=== PATIENT | female | born 1990 | race Caucasian/White ===

== ENCOUNTER → 2018-11-01 | Outpatient (CLI) | payer OTHER ==
[~2018-11-01] MED LIST: ACET-704 PO; ASPI-630 PO; HYDR200T71 PO; LEVO25TA4 PO; MELO7.5T29 PO; SERT50TA PO
--- NOTE | 2018-11-01 15:25 | EKG ---
[facility] [address] [place] [address] Test Date: 2018-11-01 Test Time: 15:22:10 Pat Name: SACHA VILLARREAL Department: Room: Gender: F Schedule Supervisor: [facility] : 1990 Requested By: MERYL GLEASON Order Number: [id number] Reading MD: Ulisses Eduardo Measurements Intervals [place] Rate: 61 P: 48 VA: 132 QRS: 59 QRSD: 78 T: 31 QT: 384 QTc: 388 Interpretive Statements SINUS RHYTHM MILD NONSPECIFIC ST-T WAVE CHANGES. Electronically Signed On 11-08-2018 10:12:33 CDT by Ulisses Eduardo
[2018-11-01 15:32] LABS: BILIRUBIN,URINE NEGATIVE (NEG); CLARITY,URINE CLEAR; COLOR,URINE YELLOW; NITRITE,URINE NEGATIVE (NEG); PROTEIN,URINE NEGATIVE (NEG-TRACE)
[2018-11-01 15:38] LABS: BASO # 0.1 x10^3/uL (0.0-0.2); BASO % 1 % (0-3); EOS # 0.3 x10^3/uL (0.0-0.7); EOS % 3 % (0-3); HEMATOCRIT 36.9 % (36.0-47.0); HEMOGLOBIN 11.8 g/dL (12.0-15.5); LYMPH # 2.7 x10^3/uL (1.0-4.8); LYMPH % 27 % (24-48); MEAN CORPUSCULAR HEMOGLOBIN 25 pg (25-35); MEAN CORPUSCULAR HGB CONC 32 g/dL (31-37); MEAN CORPUSCULAR VOLUME 77 fL (79-100); MONO # 1.3 x10^3/uL (0.0-1.1); MONO % 13 % (0-9); NEUT # 5.7 x10^3uL (1.8-7.7); NEUT % 57 % (31-73); PLATELET COUNT 298 x10^3/uL (140-400); RED BLOOD COUNT 4.78 x10^6/uL (3.50-5.40); RED CELL DISTRIBUTION WIDTH 14.9 % (11.5-14.5); WHITE BLOOD COUNT 9.9 x10^3/uL (4.0-11.0)
[2018-11-01 15:53] LABS: PROTHROMBIN TIME PATIENT 16.2 SEC (11.7-14.0)
[2018-11-01 15:55] LABS: ALBUMIN 3.8 g/dL (3.4-5.0); ALBUMIN/GLOBULIN RATIO 0.9 (1.0-1.7); CALCIUM 9.1 mg/dL (8.5-10.1); CREATININE 0.8 mg/dL (0.6-1.0); POTASSIUM 3.7 mmol/L (3.5-5.1); TOTAL BILIRUBIN 0.3 mg/dL (0.2-1.0)
[2018-11-01 16:21] LABS: BACTERIA,URINE MODERATE /HPF (0-FEW); RBC,URINE 0 /HPF (0-2); SQUAMOUS EPITHELIAL CELL,UR MOD /LPF; WBC,URINE 20-40 /HPF (0-4)
--- NOTE | 2018-11-01 16:32 | RAD ---
PA and lateral views of the chest dated 11/01/2018. No comparison available. CLINICAL INDICATION: Preop for hysterectomy. FINDINGS: PA and lateral views obtained. Heart and mediastinal contours are stable. Lungs are clear without focal consolidation. Vascular interstitium within normal limits. No pleural effusion or pneumothorax. IMPRESSION: No acute radiographic abnormality Electronically signed by: Carlos Schwarz MD (11/01/2018 4:29 PM) [id number]
--- NOTE | 2018-11-02 08:51 | NUR ---
FAXED PRETESTING RESULTS TO DR GLEASON'S OFFICE.
== END | disposition home or self-care (01) ==
LOC: SURGPAT 14:25
PROVIDERS: ATTEND Obstetrics & Gynecology
DX: Z01.818 Encounter for other preprocedural examination (principal); R94.31 Abnormal electrocardiogram [ECG] [EKG]
CPT/HCPCS: 36415; 71046; 80053; 81001; 84436; 84443; 85025; 85610; 85730; 87086; 93005

== ENCOUNTER 2018-11-10 06:16 | Observation (INO) | payer OTHER ==
[~2018-11-10] VITALS: Ht 160 cm; Wt 85.3 kg
[2018-11-10] MEDS ORDERED: ESTROGENS, CONJ VAGINAL CREAM 30GM TUBE. ONE (06:33)
[2018-11-10] MEDS ORDERED: BUPIVACAINE-EPI 0.25%-1:200000 MPF 30 ML VIAL. ONE (06:33)
[2018-11-10] MEDS ORDERED: METHYLENE BLUE 1% 10 ML VIAL. ONE (06:39)
[2018-11-10 06:49] LABS: U PREG PATIENT NEGATIVE (NEG)
[2018-11-10] MEDS ORDERED: HYDROmorphone 2 MG/ML VIAL IV PRN ×2 (07:00)
[2018-11-10] MEDS ORDERED: MORPHINE SULFATE 2 MG/ML VIAL. IV PRN ×2 (07:00)
[2018-11-10] MEDS ORDERED: PROCHLORPERAZINE 10 MG/2 ML VIAL. IV PRN ×2 (07:00)
[2018-11-10] MEDS ORDERED: fentaNYL PF VIAL 100 MCG/2 ML VIAL IV PRN ×4 (07:00→09:00)
[2018-11-10] MEDS ORDERED: ONDANSETRON PF 4 MG/2 ML VIAL. IV PRN ×3 (07:00→09:45)
[2018-11-10] MEDS ORDERED: IV RINGERS,LACTATED 1000ML 1,000 ML IV SCH ×2 (07:00)
[2018-11-10] MEDS ORDERED: LIDOCAINE 1% PF 2 ML VIAL. ID PRN ×2 (07:00)
[2018-11-10] MEDS ORDERED: PROPOFOL 20 ML IV ONE (07:05)
[2018-11-10] MEDS ORDERED: LIDOCAINE 2% PF 5 ML VIAL. ONE (07:05)
[2018-11-10] MEDS ORDERED: ROCURONIUM 50 MG/5 ML VIAL. ONE (07:06)
[2018-11-10] MEDS ORDERED: SUCCINYLCHOLINE 200 MG/10 ML VIAL. ONE (07:06)
[2018-11-10] MEDS ORDERED: fentaNYL PF VIAL 100 MCG/2 ML VIAL ONE ×4 (07:06→10:21)
[2018-11-10] MEDS ORDERED: HEPARIN for SUB-Q USE 5,000 UNIT/ML VIAL. SQ ONE (07:30)
[2018-11-10] MEDS ORDERED: DEXAMETHASONE SOD PHOS 20 MG/5 ML VIAL. ONE (07:48)
[2018-11-10] MEDS ORDERED: DESFLURANE 61 TO 120 MINUTES IH ONE (07:48)
[2018-11-10] MEDS ORDERED: ONDANSETRON PF 4 MG/2 ML VIAL. ONE (07:48)
[2018-11-10] MEDS ORDERED: FAMOTIDINE 20 MG/2 ML VIAL ONE (07:48)
[2018-11-10] MEDS ORDERED: PHENYLEPHRINE in 0.9% NACL PF 1 MG/10 ML SYRINGE. IV ONE (07:52)
[2018-11-10] MEDS ORDERED: ePHEDrine PF IN SALINE 50 MG/10 ML SYRINGE. IV ONE (07:53)
[2018-11-10] MEDS ORDERED: GLYCOPYRROLATE 1 MG/5 ML VIAL. ONE (08:52)
[2018-11-10] MEDS ORDERED: NEOSTIGMINE METHYLSULFATE 5 MG/5 ML SYRINGE. ONE (08:52)
[2018-11-10] MEDS ORDERED: MAGNESIUM HYDROXIDE 2,400 MG/30 ML ORAL.SUSP. PO PRN (09:45)
[2018-11-10] MEDS ORDERED: NALOXONE 0.4 MG/ML VIAL. IV PRN (09:45)
[2018-11-10] MEDS ORDERED: MORPHINE SULFATE 4 MG/ML VIAL. IV PRN (09:45)
[2018-11-10] MEDS ORDERED: 0.9 % SODIUM CHLORIDE 10 ML DISP.SYRIN. IV PRN (09:45)
[2018-11-10] MEDS ORDERED: diphenhydrAMINE 50 MG/ML VIAL IV PRN (09:45)
[2018-11-10] MEDS ORDERED: LACTULOSE 20 GM/30 ML SOLUTION. PO PRN (09:45)
[2018-11-10] MEDS ORDERED: MAG HYDROX/ALUMINUM HYD/SIMETH 30 ML ORAL.SUSP PO PRN (09:45)
[2018-11-10] MEDS ORDERED: SIMETHICONE 80 MG TAB.CHEW PO PRN (09:45)
[2018-11-10] MEDS ORDERED: ZOLPIDEM 5 MG TABLET. PO PRN (09:45)
[2018-11-10] MEDS ORDERED: CALCIUM CARBONATE 500 MG TAB.CHEW PO PRN (09:45)
[2018-11-10] MEDS ORDERED: diphenhydrAMINE HCL 25 MG CAPSULE PO PRN (09:45)
--- NOTE | 2018-11-10 09:56 | PDOC ---
BRIEF OPERATIVE NOTE Date: Nov 10, 2018 Pre-Op Diagnosis pelvic pain with endometriosis Post-Op Diagnosis same plus adhesive disease Procedure Performed LAVH/BSO with adhesiolysis Surgeon Dr. Rosita Jaramillo Auto Appraiser Corine Mcconnell Anesthesiologist Dr. Olvera Anesthesia Type: General Blood Loss 250cc IV Fluid 1200cc Urine Output 125cc clear via romo Specimens Obtained cervix, uterus, bilateral tubes and ovaries with right para ovarian cyst Findings RV uterus, scarring and adhesions in post cul de sac; left ovary adhesed to left side wall, right enlarged paraovarian cyst Complications none Operative Note [id number] ROSITA JARAMILLO MD Nov 10, 2018 09:56
[2018-11-10] MEDS ORDERED: PROCHLORPERAZINE 10 MG/2 ML VIAL. ONE (09:59)
[2018-11-10] MEDS: fentaNYL PF VIAL 100 MCG/2 ML VIAL IV PRN ×2 (10:00→10:13)
--- NOTE | 2018-11-10 10:37 | OP ---
DATE OF SURGERY: 11/10/2018 PREOPERATIVE DIAGNOSES: Pelvic pain with known endometriosis and 3 prior laparoscopy with excision and continued pain, desiring definitive therapy. POSTOPERATIVE DIAGNOSES: Pelvic pain with known endometriosis and 3 prior laparoscopy with excision and continued pain, desiring definitive therapy. Adhesive disease. PROCEDURE: Laparoscopic-assisted vaginal hysterectomy, bilateral salpingo-oophorectomy with adhesiolysis. SURGEON: Meryl Jaramillo MD COSTUMING SUPERVISOR: Corine Marion. ANESTHESIOLOGIST: Dr. Olvera. ANESTHESIA: General. URINE OUTPUT: 125 mL. Clear via Hu catheter. ESTIMATED BLOOD LOSS: 250 mL. IV FLUIDS: 1200 mL of crystalloid. SPECIMEN: Cervix, uterus, bilateral tubes and ovaries with a right paraovarian cyst. FINDINGS: A retroverted uterus, scarring and adhesions in the posterior cul-de-sac. Left ovary was adhesed to the left pelvic side wall, enlarged right paraovarian cyst. COMPLICATIONS: None. DESCRIPTION OF PROCEDURE: This patient was taken to the operating room where general anesthesia was placed. The patient was placed in a dorsal lithotomy position in [facility]. The patient's abdomen and vagina were prepped and draped in the normal sterile fashion, and a Hu catheter had been inserted under sterile technique. Prior to starting, she had received her 5000 subcutaneous heparin and her Ancef IV. Upon my entry to the room, a timeout was performed. Once everyone agreed, a bivalve speculum was placed in the patient's vagina. A single tooth tenaculum was used to grasp the anterior lip of the cervix. A 10 mL of 0.25% Marcaine with epinephrine was used to circumferentially inject around the cervix for both hemodissection and hemostatic purposes later. Once this was in, the Valtchev uterine manipulator was placed through the endocervical os, locked on the single tooth tenaculum and the bivalve speculum was then removed. Top gloves were discarded and changed. Attention was then turned to the abdomen where a small infraumbilical skin incision was made over the previous existing scar. A curved Saida was used to dissect through the subcuticular layer to the fascia. The 5 mm Visiport was used to directly enter the abdominal cavity. Opening patient pressure was 3-4 mmHg. Carbon dioxide gas was used to then appropriately insufflate the abdominal cavity to maintain a pressure of 15 mmHg. Right and left lower quadrant ports were placed under direct visualization. The right one was placed over an existing scar and placed in. The left one was placed transilluminating the abdominal wall, finding an area clear of any vasculature and placing the trocar in under direct visualization. Both of the trocars were inflated with a 4-5 mL of air. The camera was then moved and looked at the umbilical port. It was also clear. So it was insufflated with the air as well and the cuff. At this point, the patient was placed again in a steep Trendelenburg position, and the left tube was elevated. The ovary was stuck, so I used the [place] to elevate the ovary and the LigaSure and was used as a blunt dissector to go in and find an area posterior where there was an opening in the wall and can come around and peel it off the wall. Once this was done and it got up, the ureter was found coursing low in the pelvis, so crossing high under the ovary on the IP ligament, cauterizing and cutting, going under the tube and ovary, crossing the left round ligament as well. This was done exactly the same on the right. The right was not adhesed. The ureter was found midway but definitely below the ovary. There was a large right paraovarian cyst that was going to come out as well, but the ureter was found staying high on the ovary, crossing again on the IP ligament, cauterizing and cutting with the LigaSure and then going under the tube and ovary, crossing the right round ligament as well. The bladder flap was then started from the right sidewall. The uterus was pushed cephalad toward the head and creating it sharply with the monopolar hook while elevating the bladder flap and going across it, pulling it down. The uterine vessels were obtained on the right side and going down hugging the cervix to the right above the uterosacral on this right side. This was done exactly the same on the left. Pushing the uterus then, getting the uterines and then staying inside that pedicle, crossing contralaterally, hugging the cervix and staying inside that going down to the level of the uterosacral. Once this was done, the uterus was blanched and free. I did have to go down posteriorly and elevate the uterus and peel off just mild adhesive disease from the peritoneum to the cervix and posterior uterus where the descending colon that was from her previous, it looked like they had resected some peritoneum and the posterior cul-de-sac on her last laparoscopy that I had requested the note on, scarring in this area, but that was filmy and able to be pulled down as well, just making sure that posterior cul-de-sac area was clear when we entered from below, so at this point, all instruments were removed from the abdomen and attention was turned vaginally. The single tooth and Valtchev were removed and a weighted speculum was placed in the patient's vagina. Thyroid Dann clamps were placed on the anterior and posterior lips of the cervix respectively. A scalpel was used to make a circumferential incision in the cervix. An open Ray-Ellie 4 x 4 was used to gently push up the anterior bladder peritoneum. The anterior cul-de-sac was digitally and bluntly entered easily. A curved Nery was placed here. The cervix was elevated and the posterior cul-de-sac was sharply entered with the Tejada scissors. A #0 Vicryl stitch was used to secure the posterior peritoneum to the vaginal cuff. It was tagged with a curved Saida clamp and the needle was cut and passed off. The short weighted speculum was removed and replaced with the long weighted Cris speculum in the posterior cul-de-sac. Curved Ramiro clamps x 2 were placed on the patient's left uterosacral ligament where they were doubly clamped with curved Heaneys, cut with Tejada scissors and suture ligated x 2 with 0 Vicryl. Second one was taken through the vaginal cuff securing uterosacral ligament to the vaginal cuff and tagging it with a straight Saida clamp and cutting and passing the needle off. This was done exactly the same on the right side, double clamping the uterosacrals with curved Armiro's, cutting with Tejada scissors, suture ligating x 2 with 0 Vicryl and taking the second one through the vaginal cuff, securing uterosacral ligament to the vaginal cuff and tagging it with a straight Saida clamp and cutting and passing the needle off. There were really no remaining pedicle and cervix, uterus, bilateral tubes and ovaries with right paraovarian cyst, were delivered in total and passed off for permanent pathology. A sponge stick was used to examine the pedicles. The 4 x 4 was taken out of the anterior cul-de-sac. The long Allis was used to grasp the anterior bladder peritoneum. The long weighted Cris speculum was removed and replaced with the short weighted vaginal speculum and everything appeared to be hemostatic. So at this point 2-0 Vicryl was taken through the anterior bladder peritoneum, left uterosacral ligament, posterior peritoneum and right uterosacral ligament, thus closing the peritoneum in a pursestring like fashion. Once this was done, the right and left uterosacral tags were clipped and the cuff was closed in an anterior to posterior running locked fashion and tied to that posterior cuff tag. An imbricating stitch in the middle was done just for hemostasis and security. Once this was done, the cuff looked excellent with no bleeding and was examined with a sponge stick. So, everything was removed from the vagina. All sponge, lap and needle counts were correct x 2 on the lower part. At this point, all gloves were discarded and changed and attention was turned back above for a second look. The patient was placed back in Trendelenburg. Gas was reinsufflated. Copious irrigation showed some mild oozing on the left kind of vaginal cuff area. I used the LigaSure on this with excellent results. She just had some friable raw tissue from the adhesions. Tisseel was placed over this and then Katie was placed over that with excellent results. I took the gas down. I watched it go down, everything was good. The air was taken out of the trocar cuff. The right and left lower quadrant ports were removed. The cuff remained hemostatic. Gas was released from the umbilical port, that cuff was deflated and then three of these were closed with 4-0 nylon and injected with local at the end. The patient is being awoke from anesthesia right now. MERYL JARAMILLO MD DR: ZOE/arlene JOB#: [id number] / [id number]
[2018-11-10 11:05] VITALS: BP 102/57
[2018-11-10 11:25] VITALS: BP 113/62
[2018-11-10 12:05] VITALS: BP 104/65
[2018-11-10 13:51] VITALS: BP 106/68
[2018-11-10] MEDS ORDERED: AMMONIA AROMATIC 15% INHALANT AMPUL. ONE ×2 (14:42→15:00)
[2018-11-10] MEDS: HYDROcodone/APAP 5/325MG 1 TAB TABLET PO PRN ×2 (15:48→19:38)
[2018-11-10 16:30] VITALS: BP 109/68
[2018-11-10] MEDS: HEPARIN for SUB-Q USE 5,000 UNIT/ML VIAL. SQ SCH (21:16)
[2018-11-10 23:00] VITALS: BP 110/61
[2018-11-11] MEDS ORDERED: LEVOTHYROXINE 25 MCG TABLET. PO SCH (06:00)
[2018-11-11 06:50] VITALS: BP 104/65
[2018-11-11 07:35] LABS: CALCIUM 8.7 mg/dL (8.5-10.1); CREATININE 0.8 mg/dL (0.6-1.0); POTASSIUM 3.9 mmol/L (3.5-5.1)
[2018-11-11] MEDS: HEPARIN for SUB-Q USE 5,000 UNIT/ML VIAL. SQ SCH (08:48)
[2018-11-11] MEDS: oxyCODONE/APAP 5/325 1 TAB TABLET PO PRN ×2 (08:58→14:40)
[2018-11-11] MEDS ORDERED: SERTRALINE 50 MG TABLET. PO SCH (09:00)
[2018-11-11 12:43] VITALS: BP 106/61
--- NOTE | 2018-11-11 12:56 | PDOC ---
SURGICAL PROGRESS NOTE Subjective Doing well without complaints. tolerating a regular diet, voiding without catheter, scant VB Vital Signs Vital Signs Date Time Temp Pulse Resp B/P (MAP) Pulse Ox O2 Delivery O2 Flow Rate FiO2 11/11/18 06:50 98.1 79 104/65 (78) 99 Room Air 98.1 11/10/18 16:30 18 11/10/18 10:13 8.0 I&O Intake and Output 11/11/18 07:00 Intake Total 1950 ml Output Total 975 ml Balance 975 ml Intake Oral 400 ml IV Total 1550 ml Output Urine Total 725 ml Estimated Blood Loss 250 ml # Voids 1 PATIENT HAS A COOK: No General: Alert, Oriented X3, Cooperative, No acute distress HEENT: Atraumatic Heart: Regular rate Abdomen: Soft, No tenderness, Other (all port sites c/d/i) Extremities: No clubbing, No cyanosis, No edema, No tenderness/swelling Skin: No rashes, No breakdown Neuro: Normal speech Psych/Mental Status: Mental status NL, Mood NL Labs Laboratory Tests Test 11/10/18 06:20 11/11/18 06:44 Urine Test Negative (NEG) Hematocrit 31.5 % (36.0-47.0) Sodium Level 142 mmol/L (136-145) Potassium Level 3.9 mmol/L (3.5-5.1) Chloride Level 107 mmol/L (98-107) Carbon Dioxide Level 26 mmol/L (21-32) Anion Gap 9 (6-14) Blood Urea Nitrogen 7 mg/dL (7-20) Creatinine 0.8 mg/dL (0.6-1.0) Estimated GFR (Cockcroft-Gault) 86.0 Glucose Level 89 mg/dL (70-99) Calcium Level 8.7 mg/dL (8.5-10.1) Laboratory Tests Test 11/11/18 06:44 Hematocrit 31.5 % (36.0-47.0) Sodium Level 142 mmol/L (136-145) Potassium Level 3.9 mmol/L (3.5-5.1) Chloride Level 107 mmol/L (98-107) Carbon Dioxide Level 26 mmol/L (21-32) Anion Gap 9 (6-14) Blood Urea Nitrogen 7 mg/dL (7-20) Creatinine 0.8 mg/dL (0.6-1.0) Estimated GFR (Cockcroft-Gault) 86.0 Glucose Level 89 mg/dL (70-99) Calcium Level 8.7 mg/dL (8.5-10.1) I have reviewed the following labs, vitals, nursing Heme/Onc: Anemia NOS Assessment/Plan POD #1 s/p LAVH/BSO with adhesiolysis Routine care d/c to home NPV x 6 weeks light/limited activity x 2 weeks already has pain pills filled at home restart heparin daily NO driving while on narcotic pain meds keep scheduled one week postop visit in office call or return sooner for any other questions or concerns not limited to but including pain unrelieved with pain meds, increased or unexplained vaginal bleeding or any other questions or concerns MERYL GLEASON MD Nov 11, 2018 12:56
--- NOTE | 2018-11-11 12:58 | PDOC3 ---
Discharge Summary Visit Information Date of Admission: Nov 10, 2018 Date of Discharge: Nov 11, 2018 Admitting Diagnosis Comment: severe endometriosis and pelvic pain Brief Hospital Course Allergies Allergies Coded Allergies Type Severity Reaction Last Updated Verified Sulfa (Sulfonamide Antibiotics) Allergy Unknown Nausea and Vomiting 11/10/18 Yes Vital Signs Vital Signs Date Time Temp Pulse Resp B/P (MAP) Pulse Ox O2 Delivery O2 Flow Rate FiO2 11/11/18 06:50 98.1 79 104/65 (78) 99 Room Air 98.1 11/10/18 16:30 18 11/10/18 10:13 8.0 Lab Results Laboratory Tests Test 11/10/18 06:20 11/11/18 06:44 Urine Test Negative (NEG) Hematocrit 31.5 % (36.0-47.0) Sodium Level 142 mmol/L (136-145) Potassium Level 3.9 mmol/L (3.5-5.1) Chloride Level 107 mmol/L (98-107) Carbon Dioxide Level 26 mmol/L (21-32) Anion Gap 9 (6-14) Blood Urea Nitrogen 7 mg/dL (7-20) Creatinine 0.8 mg/dL (0.6-1.0) Estimated GFR (Cockcroft-Gault) 86.0 Glucose Level 89 mg/dL (70-99) Calcium Level 8.7 mg/dL (8.5-10.1) Laboratory Tests Test 11/11/18 06:44 Hematocrit 31.5 % (36.0-47.0) Sodium Level 142 mmol/L (136-145) Potassium Level 3.9 mmol/L (3.5-5.1) Chloride Level 107 mmol/L (98-107) Carbon Dioxide Level 26 mmol/L (21-32) Anion Gap 9 (6-14) Blood Urea Nitrogen 7 mg/dL (7-20) Creatinine 0.8 mg/dL (0.6-1.0) Estimated GFR (Cockcroft-Gault) 86.0 Glucose Level 89 mg/dL (70-99) Calcium Level 8.7 mg/dL (8.5-10.1) Brief Hospital Course Ms. Mauricio is a 28 old female who presented with recurrent pelvic pain and 3 prior laparoscopies for endometriosis desiring definitve therapy. She underwent an LAVH/BSO with adhesiolysis yesterday without complications. She has had an unremarkable postoperative course and is voiding without catheter, tolerating a regular diet and on PO pain meds. She will be discharged to home later today She is AF VSS Discharge Information Condition at Discharge: Stable Follow Up: Weeks Disposition/Orders: D/C to Home Scheduled Aspirin (Aspirin) 81 Mg Tab.chew, 1 TAB PO DAILY for BLOOD THINNER, #30 Ref 3 ( Reported) Entered as Reported by: MIRIAM IZAGUIRRE on 11/01/18 1504 Last Taken: Unknown Dose on 11/01/18 Last Action: HELD on 11/10/18722 by MERYL GLEASON Hydroxychloroquine Sulfate (Plaquenil) 200 Mg Tablet, 200 MG PO DAILY for LUPUS, (Reported) Entered as Reported by: MIRIAM IZAGUIRRE on 11/01/18 1501 Last Taken: Unknown Dose on 11/09/18 Last Action: HELD on 11/10/18722 by MERYL GLEASON Levothyroxine Sodium (Levothyroxine Sodium) 25 Mcg Tablet, 1 TAB PO DAILY for THROID, #30 Ref 5 (Reported) Entered as Reported by: MIRIAM IZAGUIRRE on 11/01/18 1503 Last Taken: Unknown Dose on 11/09/18 Last Action: Converted on 11/10/18722 by MERYL GLEASON Meloxicam (Meloxicam) 7.5 Mg Tablet, 1 TAB PO DAILY for PAIN, #30 Ref 2 ( Reported) Entered as Reported by: MIRIAM IZAGUIRRE on 11/01/18 1502 Last Taken: Unknown Dose on 11/09/18 Last Action: HELD on 11/10/18722 by MERYL GLEASON Sertraline Hcl (Zoloft) 50 Mg Tablet, 1 TAB PO DAILY for DEPRESSION, #30 Ref 2 ( Reported) Entered as Reported by: MIRIAM IZAGUIRRE on 11/01/18 1458 Last Taken: Unknown Dose on 11/09/18 Last Action: Continued on 11/10/18722 by MERYL GLEASON Scheduled PRN Acetaminophen With Codeine (Tylenol With Codeine #3 Tablet) 1 Each Tablet, 1 TAB PO PRN Q6HRS PRN for PAIN, (Reported) Entered as Reported by: MIRIAM IZAGUIRRE on 11/01/18 1457 Last Taken: Unknown Dose on 11/09/18 Last Action: HELD on 11/10/18722 by MERYL GLEASON Patient Instructions Patient Instructions POD #1 s/p LAVH/BSO with adhesiolysis Routine care d/c to home NPV x 6 weeks light/limited activity x 2 weeks already has pain pills filled at home restart heparin daily NO driving while on narcotic pain meds keep scheduled one week postop visit in office call or return sooner for any other questions or concerns not limited to but including pain unrelieved with pain meds, increased or unexplained vaginal bleeding or any other questions or concerns MERYL GLEASON MD Nov 11, 2018 12:58
--- NOTE | 2018-11-11 14:54 | NUR ---
home instructions gone over with pt and signed no questions on home care has appt set up with
--- NOTE | 2018-11-11 15:07 | PATHOLOGY ---
[facility] Accession Number: [id number] . 01 Material submitted: . UTERUS, CERVIX, BILATERAL TUBES AND OVARIES . 01 Clinical history: . Endometriosis, pelvic pain . 02 Diagnosis: Uterus, bilateral ovaries and fallopian tubes, hysterectomy and bilateral salpingectomy: - Cervix with mild chronic inflammation and nabothian cysts. - Proliferative phase endometrium. - Myometrium with focal adenomyosis. - Serosal surface with no pathologic diagnosis. - Right and left ovaries with hemorrhagic cysts (please see comment). - Right and left fallopian tubes with no pathologic diagnosis. (KATELIN:zan; 11/11/2018) [facility]/11/11/2018 . 02 Comment: No definite endometrial glands or stroma are present in association with the hemorrhagic cysts in the ovary, however, the findings could be consistent with endometriosis. (KATELIN:zan; 11/11/2018) . 02 Electronically signed: . Miles Sow MD, Pathologist NPI- [id number] . 01 Gross description: . The specimen is received in formalin, labeled "[place], Valentine, uterus, cervix, bilateral tubes and ovaries" and consists of a 82 g uterus with attached cervix measuring 8.7 x 5.2 x 3.8 cm. There are attached bilateral adnexa. The right consists of a fimbriated fallopian tube (7.4 cm in length and up to 0.5 cm in diameter) which is attached to a 15 g cystic mass/ovary measuring 5.4 cm in length and ranging from 0.3-4.0 cm in diameter. The left complex consists of a fimbriated fallopian tube (5.8 cm in length and up to 0.6 cm in diameter) attached to a hemorrhagic and cystic 7 g ovary (3.9 x 2.2 x 1.6 cm). The uterine serosa is pink-sherman anterior surface with marked hemorrhage and adhesions on the posterior aspect. The slitlike and gaping 1.8 cm cervical os is surrounded by granular pink-brown ectocervical mucosa. The specimen is bivalved to reveal a grooved and polypoid endocervical canal measuring 2.6 cm in length. The endometrial cavity is triangular measuring 4.2 cm in length and 2.6 cm in width which is lined by a red-pink endometrium ranging from 0.1-0.2 cm. The myometrium is pink-sherman and mildly trabeculated measuring up to 2.2 cm. No masses are identified. . Both the right and left fimbriated fallopian tubes are purple-boggs and smooth with sectioning revealing a well-defined central lumen and no gross lesions. Sectioning the right ovary reveals multiple uniloculated cystic structures containing viscous fluid. The large ovarian mass consists of a "chocolate cyst." Sectioning the left ovary reveals multiple uniloculated subcortical cysts containing translucent fluid as well as a "chocolate cyst". Sas Architect sections are submitted as follows: . A1: Anterior cervix A2: Posterior cervix A3: Endocervical canal A4: Anterior endomyometrium A5: Posterior endomyometrium A6: Serosal hemorrhage A7: Right fallopian tube with attached cystic ovary A8: Right ovarian cystic mass A9: Left fallopian tube A10: Left ovary (SDY; 11/10/2018) SYU/SYU . 02 Pathologist provided ICD-10: N72, N88.8, N80.0, N83.201, N83.202 . 02 CPT . 155260 Specimen Comment: A courtesy copy of this report has been sent to Specimen Comment: [phone], . Specimen Comment: Report sent to / DR TAYLOR Specimen Comment: A duplicate report has been generated due to demographic updates. Performed at: 01 [facility] [address], [place] [id number] MD Colt Falcon MD Phone: [phone] Performed at: [facility] [address] [place], [place] [id number] MD Eliseo Vale MD Phone: [phone]
== END 2018-11-11 15:37 | disposition home or self-care (01) ==
LOC: SURG 06:16 → EDUNIT# 07:30 → 3 NORTH 10:06
PROVIDERS: ADMIT Obstetrics & Gynecology; ATTEND Obstetrics & Gynecology
DX: N80.9 Endometriosis, unspecified (principal); N83.209 Unspecified ovarian cyst, unspecified side; E46 Unspecified protein-calorie malnutrition; M32.14 Glomerular disease in systemic lupus erythematosus
CPT/HCPCS: 36415; 58552; 80048; 81025; 85014; 86850; 86900; 86901; 88307; 96372; 96374; A7015; G0378; G0379; J0171; J0330; J0780; J1100; J1644; J2001; J2370; J2405; J2704; J2710; J3010; J3490; J7030; J7120; Q9968

== ENCOUNTER → 2019-03-07 | Day surgery (SDC) | payer OTHER ==
[~2019-03-07] VITALS: Ht 160 cm; Wt 83.0 kg
[~2019-03-07] MED LIST changes: +ACETAMINOPHEN/CODEINE 300/30MG TABLET. PO ONE; +BUPIVAC MPF-EPI 0.5%-1:200000 30 ML VIAL. ONE; +BUPIVACAINE MPF 0.5% 30 ML VIAL. ONE; +BUPIVACAINE-EPI 0.25%-1:200000 MPF 30 ML VIAL. ONE; +DESFLURANE 31 TO 60 MINUTES IH ONE; +DEXAMETHASONE SOD PHOS 4 MG/ML VIAL ONE; +FAMOTIDINE 20 MG/2 ML VIAL ONE; +GLUCAGON,HUMAN RECOMBINANT 1 MG/ML VIAL. ONE; +GLYCOPYRROLATE 1 MG/5 ML VIAL. ONE; +HEPARIN for SUB-Q USE 5,000 UNIT/ML VIAL. SQ ONE; +IOHEXOL 300 MG/ML 50 ML VIAL. ONE; +IV RINGERS,LACTATED 1000ML 1,000 ML IV SCH; +LIDOCAINE 1% PF 2 ML VIAL. ID PRN; +LIDOCAINE 2% PF 5 ML VIAL. ONE; +NEOSTIGMINE METHYLSULFATE 5 MG/5 ML SYRINGE. ONE; +ONDANSETRON PF 4 MG/2 ML VIAL. IV PRN; +ONDANSETRON PF 4 MG/2 ML VIAL. ONE; +PROCHLORPERAZINE 10 MG/2 ML VIAL. IV PRN; +PROPOFOL 20 ML IV ONE; +ROCURONIUM 50 MG/5 ML VIAL. ONE; +SUCCINYLCHOLINE 200 MG/10 ML VIAL. ONE; +SURGICEL HEMOSTAT 4X8 EACH. ONE; +ceFAZolin 2GM PREMIX 2 GM/50 ML BAG IV ONE; +fentaNYL PF VIAL 100 MCG/2 ML VIAL IV PRN; +fentaNYL PF VIAL 100 MCG/2 ML VIAL ONE
--- NOTE | 2019-03-07 08:44 | RAD ---
CHOLANGIOGRAM INTRAOPERATIVE Clinical Indication: Cholecystectomy. Comparison: None. Findings: Intraoperative fluoroscopic guidance is provided by the technologist. Total fluoroscopy time 0.8 minutes. 2 fluoroscopic spot images. Cholecystectomy clips. Injection of cystic duct remnant opacifies the biliary tree. The extra hepatic duct is dilated, there is minimal spillage into the duodenum. The common bile duct is normal caliber. No intraluminal filling defect is identified. There is a probable enteric tube in the stomach. IMPRESSION: No evidence of choledocholithiasis. Electronically signed by: Elia Neal MD (03/07/2019 8:42 AM) [id number]
--- NOTE | 2019-03-07 09:15 | DISCH ---
DISCHARGE INSTRUCTIONS Condition on Discharge Condition on Discharge: Stable Activity After Discharge Activity Instructions for Disc: Activity as tolerated, Avoid exertion Lifting Instructions after Dis: No heavy lifting Driving Instructions after Dis: Do not drive (3-4 days) Diet after Discharge Diet after Discharge: Regular Wound Incision Care Wound/Incision Care: Ice to area for comfort Other wound/incision instructi: december showthursday Follow-Up Follow up with: Hermann next week Treatment/Equipment after DC Adaptive Equipment Issued: None JANETTE SPENCER MD Mar 07, 2019 09:14
--- NOTE | 2019-03-07 09:36 | PDOC ---
BRIEF OPERATIVE NOTE Date: Mar 07, 2019 Pre-Op Diagnosis symptomatic cholelithiasis Post-Op Diagnosis same Procedure Performed l/s cholecystectomy with cholangiograms Surgeon Hermann KRUSE Anesthesia Type: General Blood Loss 25cc IV Fluid 1000cc Specimens Obtained GB Findings small, stone filled GB, normal grams Complications none Operative Note Wk # [id number] JANETTE SPENCER MD Mar 07, 2019 09:36
[2019-03-07] MEDS: fentaNYL PF VIAL 100 MCG/2 ML VIAL IV PRN ×4 (09:38→11:03)
--- NOTE | 2019-03-07 10:22 | OP ---
DATE OF SURGERY: 03/07/2019 PREOPERATIVE DIAGNOSIS: Symptomatic cholelithiasis. POSTOPERATIVE DIAGNOSIS: Symptomatic cholelithiasis. PROCEDURE: Laparoscopic cholecystectomy with cholangiogram. SURGEON: Titus Spencer MD BIOLOGY LECTURER: AIXA Peña ANESTHESIA: General endotracheal. ESTIMATED BLOOD LOSS: 25 mL. INTRAVENOUS FLUIDS: 1 liter. INDICATIONS: The patient is a 28-year-old with right upper quadrant pain and gallstones. She has protein S deficiency and as such received subcutaneous heparin preoperatively. OPERATIVE FINDINGS: The liver was smooth and sharp. The gallbladder was small with multiple stones. Visual inspection of the remainder of the abdomen failed to reveal obvious abnormalities. DESCRIPTION OF PROCEDURE: The patient was brought to the operating suite, given a general endotracheal anesthetic and the abdomen prepped and draped in usual sterile fashion. An infraumbilical incision was infiltrated with local anesthetic, incised and a 5 mm Visiport used to safely gain access into the abdominal cavity, taking care to avoid injury to abdominal contents. Pneumoperitoneum established. Camera inserted. Inspection carried out with results as noted above. With the table in reverse Trendelenburg rolled to the left, the epigastric and midclavicular ports were placed under direct vision. The lateral port location was used for an "alligator" grasper and the gallbladder was retracted superolaterally and omental adhesions carefully taken down from the inferior surface of the gallbladder with cautery and blunt dissection, taking care to avoid injury to the adjacent bowel. The cystic duct and cystic artery were identified. The duct was clipped on the gallbladder side and opened. A small stone was delivered from the cystic duct. Cholangiograms were made. These were normal. In light of this, the catheter was removed. The cystic duct was clipped and divided, taking care to avoid injury or compromise of the common duct. An anterior and posterior branch of the cystic artery were clipped and divided and the gallbladder freed from the bed with cautery dissection. Hemostasis was obtained in the fossa with cautery, Surgicel and some FloSeal. When hemostasis was present, the table was returned to level. The gallbladder was delivered through the epigastric incision, which was then closed with interrupted 0 Vicryl suture. Intra-abdominal pressure decreased to 6 cm of water. No bleeding from the cystic arteries or from the bed was seen, no bile leak appreciated. Abdomen decompressed, camera slowly removed, no bleeding seen. Skin incisions closed with subcuticular 4-0 Monocryl or 5-0 nylon. Sterile dressings applied. The patient awakened from her anesthetic and taken to the recovery room in satisfactory condition. TITUS SPENCER MD DR: PRITI/arlene JOB#: [id number] / [id number]
[2019-03-07 12:14] VITALS: BP 94/60
--- NOTE | 2019-03-08 14:07 | PATHOLOGY ---
[facility] Accession Number: [id number] . 01 Material submitted: . gallbladder - GALLBLADDER . 01 Clinical history: . Symptomatic cholelithiasis . 02 Diagnosis: Gallbladder, cholecystectomy: - Cholelithiasis. - Chronic and focal early slight acute cholecystitis. - Reactive changes of gallbladder neck lymph node. (JPM:ayaka; 03/08/2019) QMS/03/08/2019 . 02 Comment: There is no evidence of malignancy. . (JPM:ayaka; 03/08/2019) . 02 Electronically signed: . Eliseo Vale MD, Pathologist NPI- [id number] . 01 Gross description: . The specimen is received in formalin labeled "Hang, Valentine, gallbladder" and consists of an intact pink-boggs, smooth, and shiny gallbladder measuring 7.8 cm in length and up to 2.2 cm in diameter. The margin is inked black. Opening reveals a lumen filled with viscous orange-brown bile and multiple multifaceted orange-brown calculi measuring 4.9 x 4.5 cm in aggregate. The mucosa is pink-brown, granular, and eroded with an average wall thickness of 0.1 cm. No masses are identified. Adjacent the gallbladder neck is a lymph node candidate measuring 0.8 x 0.6 cm Attendance Officer sections are submitted in A1-A2 with the lymph node candidate in A2. (SDY; 03/07/2019) SYU/SYU . 02 Pathologist provided ICD-10: K80.12 . 02 CPT . 969174 Specimen Comment: A courtesy copy of this report has been sent to Specimen Comment: [phone], . Specimen Comment: Report sent to / DR AUSTIN Performed at: 01 [facility] [address], [place], [place] [id number] MD Colt Falcon MD Phone: [phone] Performed at: 02 [facility] [address], [place] [id number] MD Eliseo Vale MD Phone: [phone]
== END ==
LOC: SURG 06:37
PROVIDERS: ATTEND Surgery
DX: K80.12 Calculus of gallbladder with acute and chronic cholecystitis without obstruction (principal); F41.9 Anxiety disorder, unspecified; F32.9 Major depressive disorder, single episode, unspecified; E03.9 Hypothyroidism, unspecified; G43.909 Migraine, unspecified, not intractable, without status migrainosus; Z90.710 Acquired absence of both cervix and uterus; Z98.890 Other specified postprocedural states; Z72.89 Other problems related to lifestyle; Z88.1 Allergy status to other antibiotic agents; Z88.5 Allergy status to narcotic agent
CPT/HCPCS: 47563; 74300; 81025; A7015; J0330; J0696; J0780; J1100; J1644; J2001; J2405; J2704; J2710; J3010; J3490; J7030; J7120; Q9967; J1610